=== PATIENT | female | born 1980 | race Hispanic/Latino ===

== ENCOUNTER 2018-06-14 09:29 | Emergency (ER) | payer OTHER ==
[2018-06-14 09:34] VITALS: BP 123/86
--- NOTE | 2018-06-14 10:36 | Emergency Department Report ---
Minor Respiratory - HPI Chief Complaint: Upper Respiratory Infection Stated Complaint: NAUSEA/HEADACHE Time Seen by Provider: 06/14/18 10:25 Duration: 4 Days Minor Respiratory: Yes Rhinorrhea, Yes Sore Throat, Yes Able to Tolerate Fluids, Yes Cough, Yes Sick Contacts (boyfriend with bronchtis), No Ear Pain, No Hemoptysis, No Chest Pain, No Shortness of Breath, No Fever Other History: Nohemy is a 38 yo smoker with hx of nasal congestion, malaise, cough, wheezing for 4 days. ED Review of Systems ROS: Stated complaint: NAUSEA/HEADACHE Other details as noted in HPI Constitutional: malaise Respiratory: cough, wheezing ED Past Medical Hx - Social History Smoking Status: Current Every Day Smoker Substance Use Type: None - Medications Home Medications: Home Medications Medication Instructions Recorded Confirmed Last Taken Type Doxycycline Hyclate [Vibramycin] 100 mg PO BID 10 Days #20 capsule 06/14/18 Unknown Rx Minor Respiratory Exam - Exam General: Vital signs noted. No distress. Alert and acting appropriately. HEENT: Yes Moist Mucous Membranes, No Pharyngeal Erythema, No Pharyngeal Exudates, No Rhinorrhea, No Conjuctival Injection Neck: Yes Supple, No Adenopathy Lungs: Yes Good Air Exchange, No Wheezes, No Ronchi, No Stridor, No Cough, No Labored Respirations, No Retractions, No Use of Accessory Muscles, No Other Abnormal Lung Sounds Heart: Yes Regular, No Murmur Abdomen: Yes Normal Bowel Sounds, No Tenderness, No Peritoneal Signs Skin: No Rash, No Edema Neurologic: Alert and oriented, no deficits. Musculoskeletal: Unremarkable. ED Course Vital Signs 06/14/18 09:31 Temperature 98.2 F Pulse Rate 104 H Respiratory 18 Rate Blood Pressure 123/86 O2 Sat by Pulse 100 Oximetry ED Medical Decision Making - Medical Decision Making URI, acute bronchitis due to tobacco use history antibiotic indicated: Doxycycline prescribed Critical care attestation.: If time is entered above; I have spent that time in minutes in the direct care of this critically ill patient, excluding procedure time. ED Disposition Clinical Impression: Acute bronchitis, URI (upper respiratory infection) Disposition: - TO HOME OR SELFCARE Is pt being admited?: No Does the pt Need Aspirin: No Condition: Stable Instructions: Acute Bronchitis (ED), Upper Respiratory Infection (ED) Prescriptions: Doxycycline Hyclate [Vibramycin] 100 mg PO BID 10 Days #20 capsule Referrals: [facility] [Outside] - 3-5 Days
== END 2018-06-14 10:43 | disposition home or self-care (01) ==
LOC: ED 09:29
DX: J06.9 Acute upper respiratory infection, unspecified (principal); J40 Bronchitis, not specified as acute or chronic; F17.200 Nicotine dependence, unspecified, uncomplicated
CPT/HCPCS: 99282

== ENCOUNTER 2018-09-03 18:58 | Emergency (ER) | payer SELFPAY ==
[2018-09-03 19:17] VITALS: BP 138/80
[2018-09-03 19:52] LABS: HCG Qualitative,Urine Negative (Negative)
[2018-09-03 19:54] LABS: Bacteria,Urine 1+ /HPF (Negative); Bilirubin,Urine NEG (Negative); Blood,Urine NEG (Negative); Color,Urine Amber (Yellow); Mucus,Urine 3+ /HPF; Urobilinogen,Urine < 2.0 mg/dL (<2.0)
== END 2018-09-04 01:46 | disposition left against medical advice (07) ==
LOC: ED 18:58
DX: N39.0 Urinary tract infection, site not specified (principal); Z53.21 Procedure and treatment not carried out due to patient leaving prior to being seen by health care provider
CPT/HCPCS: 81001; 81025